=== PATIENT | female | born 2000 | race African-American/Black ===

== ENCOUNTER 2023-03-23 16:46 | Emergency (ER) | payer OTHER ==
[~2023-03-23] VITALS: Ht 170.2 cm; Wt 113.4 kg
[2023-03-23 18:40] VITALS: BP 135/79; TEMP 98.2; O2SAT 98
== END 2023-03-23 18:41 | disposition home or self-care (01) ==
LOC: ER 17:06
DX: F41.0 Panic disorder [episodic paroxysmal anxiety] (principal)
CPT/HCPCS: A4606; A4663